=== PATIENT | male | born 1955 | race Caucasian/White ===

== ENCOUNTER → 2022-06-01 | Outpatient (CLI) | payer MEDICARE, BC ==
[~2022-06-01] MED LIST: ATOR1TAB21 PO; OMEG10002 PO; VITA-148 PO; VITA100093 PO
== END ==
LOC: M LABSMTC 10:53
PROVIDERS: ATTEND Anesthesiology
DX: Z01.812 Encounter for preprocedural laboratory examination (principal); Z20.822 Contact with and (suspected) exposure to COVID-19

== ENCOUNTER 2022-06-06 10:08 | Day surgery (SDC) | payer BC, MEDICARE ==
[~2022-06-06] VITALS: Ht 172.7 cm; Wt 88.0 kg
[~2022-06-06 10:08] MED LIST changes: +NS 1,000 ML IV ONE
[2022-06-06] MEDS ORDERED: propofoL 200 MG/20 ML VIAL As Ordered ONE ×2 (12:28→13:04)
[2022-06-06] MEDS ORDERED: LIDOCAINE 2% 100MG/5ML SDV (FOR ANES.) As Ordered ONE (12:28)
== END 2022-06-06 13:40 | disposition home or self-care (01) ==
LOC: M OPP 10:08
PROVIDERS: ATTEND Internal Medicine Gastroenterology
DX: D12.6 Benign neoplasm of colon, unspecified (principal); K57.30 Diverticulosis of large intestine without perforation or abscess without bleeding; K64.8 Other hemorrhoids; E78.5 Hyperlipidemia, unspecified; K21.9 Gastro-esophageal reflux disease without esophagitis; Z87.891 Personal history of nicotine dependence; Z79.899 Other long term (current) drug therapy